=== PATIENT | male | born 1930 | race Caucasian/White ===

== ENCOUNTER 2017-06-15 07:15 | Emergency (ER) | payer OTHER ==
[~2017-06-15] VITALS: Ht 157.5 cm; Wt 80.7 kg
[2017-06-15] MEDS ORDERED: VITAMIN B-12500 MCG PO (07:43)
[2017-06-15] MEDS ORDERED: CENTRUM SILVER1 EAC4 PO (07:43)
[2017-06-15 08:22] LABS: ABSOLUTE EOSINOPHILS 0.1 thou/uL (0.0-0.7); ABSOLUTE MONOCYTES 0.4 thou/uL (0.0-1.2); ABSOLUTE NEUTROPHILS 4.3 thou/uL (1.6-8.1); BASOPHILS 0.6 %; EOSINOPHILS 2.1 %; HEMATOCRIT 29.2 % (42.0-52.0); HEMOGLOBIN 9.3 gm/dL (14.0-18.0); LYMPHOCYTES 16.6 %; MONOCYTES 7.3 %; NUCLEATED RBCS 0 /100WBC; PLATELET COUNT* 192 thou/uL (150-400); POLYS 73.4 %; RBC 3.89 mil/uL (4.50-6.00); RDW-CV 19.5 % (10.5-14.5); WBC 5.8 thou/uL (4.0-11.0)
[2017-06-15 08:30] LABS: CALCIUM 8.7 mg/dL (8.5-10.1); CREATININE 1.7 mg/dL (0.6-1.3); POTASSIUM 3.9 mmol/L (3.5-5.1)
[2017-06-15 08:35] LABS: ALBUMIN 3.7 g/dL (3.4-5.0); TOTAL BILIRUBIN 0.8 mg/dL (<0.1-1.0); TOTAL PROTEIN 7.2 g/dL (6.4-8.2)
[2017-06-15] MEDS ORDERED: ULTRAM 50MG TAB50 MG PO (09:40)
[2017-06-15 09:57] VITALS: BP 93/52
--- NOTE | 2017-06-15 11:30 | EKG ---
[place] [address] ELECTROCARDIOGRAM REPORT Name: NABIL BORRERO [id number] Admission: 06/15/17 Attend Phys: Discharge: 06/15/17 Date of : 30 Report #: [id number] THIS REPORT FOR: //name// [facility] ED Test Date: 2017-06-15 Test Time: 08:05:22 Pat Name: NABIL BORRERO Department: Room: Gender: M Associate Professor Of Engineering: Linnette FARR : 1930 Requested By: Hernandez Rodriguez Order Number: [id number] MD: Dean Arceo Measurements Intervals [place] Rate: 69 P: 59 [place]: 171 QRS: -17 QRSD: 104 T: 84 QT: 436 QTc: 467 Interpretive Statements Sinus rhythm Multiple premature complexes, vent & supraven Borderline left axis deviation Low voltage, extremity leads Baseline wander in lead(s) V2,V3,V4,V5 No previous ECG available for comparison Electronically Signed On 06-15-2017 11:30:04 [employer] by Dean Arceo [email or web address] <ELECTRONICALLY SIGNED> By: Dean Arceo MD, [facility] 06/15/17 [id number] [id number] Dean Arceo MD, [facility] /EPI
== END 2017-06-15 09:58 | disposition home or self-care (01) ==
LOC: M.ERS 07:15
PROVIDERS: Family Medicine
DX: S00.83XA Contusion of other part of head, initial encounter (principal); S22.41XA Multiple fractures of ribs, right side, initial encounter for closed fracture; Z85.46 Personal history of malignant neoplasm of prostate; Z87.891 Personal history of nicotine dependence; W00.2XXA Other fall from one level to another due to ice and snow, initial encounter; Y93.89 Activity, other specified; Y92.89 Other specified places as the place of occurrence of the external cause; Y99.8 Other external cause status